=== PATIENT | male | born 1940 | race Two or more races ===

== ENCOUNTER 2022-01-04 21:30 | Inpatient (IN) | payer OTHER ==
[~2022-01-04] VITALS: Ht 165.1 cm; Wt 65.0 kg
[2022-01-04] MEDS ORDERED: LABETALOL HCL 5 MG/ML 4ML SYRINGE IV ONE ×2 (21:45→22:45)
[2022-01-04] MEDS ORDERED: MORPHINE SULFATE 4 MG/ML SYR/VIAL IV ONE (21:45)
[2022-01-04] MEDS ORDERED: KETAMINE 50mg/ML 10ml Vial (500mg/10ml) IV ONE (22:00)
[2022-01-04 22:18] LABS: Basophils # (auto) 0 10 ^3/uL (0-0.2); Basophils % (auto) 0.3 % (0.0-2.0); Eosinophils # (auto) 0.1 10 ^3/uL (0-0.8); Eosinophils % (auto) 1.3 % (0.0-7.0); Hematocrit 42.1 % (41.0-53.0); Hemoglobin 14.1 g/dL (13.5-17.5); Lymphocytes # (auto) 3.3 10 ^3/uL (0.4-5.4); Lymphocytes % (auto) 32.4 % (10.0-50.0); Mean Corpuscular Hgb Conc. 33.5 g/dL (32.0-36.0); Mean Corpuscular Volume 95.5 fL (80.0-100.0); Monocytes # (auto) 0.7 10 ^3/uL (0-1.3); Monocytes % (auto) 6.8 % (0.0-12.0); Neutrophils # (auto) 6.1 10 ^3/uL (1.6-8.6); Neutrophils % (auto) 59.2 % (37.0-80.0); Nucleated Red Blood Cells % 0.1 %; Red Blood Cells 4.41 10^6/uL (4.5-5.90); Red Cell Distribution Width 13.6 % (11.8-14.3); White Blood Cell 10.3 10^3/uL (4.4-10.8)
[2022-01-04 22:35] LABS: Albumin 3.7 g/dL (3.4-5.0); BUN/Creatinine Ratio 14.6; Calcium 8.1 mg/dL (8.5-10.1)
[2022-01-04 22:38] LABS: Bilirubin, Total 0.2 mg/dL (0.2-1.0); Total Protein 7.1 g/dL (6.4-8.2)
[2022-01-05] MEDS ORDERED: LABETALOL HCL 5 MG/ML 4ML SYRINGE IV ONE
[2022-01-05 00:35] LABS: Urine Bacteria NONE SEEN /hpf (None Seen); Urine Blood Negative /uL (Negative); Urine Hyaline Cast FEW /lpf (0 - 2); Urine Specific Gravity 1.013 (1.001-1.035); Urine WBC 1 /hpf (0 - 3)
[2022-01-05 00:39] LABS: Amphetamine Screen, Urine NEGATIVE (NEGATIVE); Barbiturate Scree,Urine NEGATIVE (NEGATIVE); Benzodiazephine Screen, Urine NEGATIVE (NEGATIVE); Cannabinoid Screen, Urine NEGATIVE (NEGATIVE); Cocaine Screen, Urine NEGATIVE (NEGATIVE); Opiate Scree,Urine NEGATIVE (NEGATIVE); Phencyclidine Screen, Urine NEGATIVE (NEGATIVE)
[2022-01-05] MEDS ORDERED: MORPHINE SULFATE 4 MG/ML SYR/VIAL IV ONE ×2 (00:45→02:30)
[2022-01-05] MEDS ORDERED: hydrALAZINE HCL 20 MG/ML VL IV PRN (03:00)
[2022-01-05] MEDS ORDERED: DOCUSATE SOD 100 MG CAP PO PRN (03:00)
[2022-01-05] MEDS ORDERED: ONDANSETRON HCL 4 MG/2 ML VIAL IV PRN (03:00)
[2022-01-05] MEDS ORDERED: DEXTROSE (50%) 50ML SYRG IV PRN (03:00)
[2022-01-05] MEDS ORDERED: ACETAMINOPHEN 325 MG TAB PO PRN (03:00)
[2022-01-05] MEDS ORDERED: KETOROLAC TROMETH 30 MG/ML 1ML VIAL IV ONE (03:30)
[2022-01-05] MEDS ORDERED: MORPHINE SULFATE INJ 2 MG/ml SYRG IV PRN (03:30)
[2022-01-05] MEDS ORDERED: NITROGLYCERIN 0.4 MG SL TAB SL PRN (03:30)
[2022-01-05] MEDS ORDERED: amLODIPine BESYLATE 5 MG TAB PO ONE (03:45)
[2022-01-05] MEDS ORDERED: METOPROLOL TARTRATE 50 MG TAB PO ONE (03:45)
[2022-01-05] MEDS: SODIUM CHLORIDE 0.9% 1,000 ML IV SCH ×2 (03:49→19:40)
[2022-01-05] MEDS ORDERED: ALBUTEROL SULF 2.5 MG/0.5ML(0.5%) NEB SOLN NEB ONE (05:15)
[2022-01-05] MEDS ORDERED: IPRATROPIUM BROM 0.5 MG/2.5ML INH SOL NEB ONE (05:15)
[2022-01-05 06:19] LABS: Basophils # (auto) 0 10 ^3/uL (0-0.2); Basophils % (auto) 0.2 % (0.0-2.0); Eosinophils # (auto) 0 10 ^3/uL (0-0.8); Eosinophils % (auto) 0.1 % (0.0-7.0); Hematocrit 37.8 % (41.0-53.0); Hemoglobin 13.1 g/dL (13.5-17.5); Lymphocytes # (auto) 0.8 10 ^3/uL (0.4-5.4); Lymphocytes % (auto) 8.4 % (10.0-50.0); Mean Corpuscular Hemoglobin 31.3 pg (28.0-32.0); Mean Corpuscular Hgb Conc. 34.6 g/dL (32.0-36.0); Mean Corpuscular Volume 90.5 fL (80.0-100.0); Monocytes # (auto) 0.8 10 ^3/uL (0-1.3); Monocytes % (auto) 8.2 % (0.0-12.0); Neutrophils # (auto) 7.9 10 ^3/uL (1.6-8.6); Neutrophils % (auto) 83.1 % (37.0-80.0); Red Blood Cells 4.17 10^6/uL (4.5-5.90); Red Cell Distribution Width 13.3 % (11.8-14.3); White Blood Cell 9.5 10^3/uL (4.4-10.8)
[2022-01-05 06:34] LABS: Albumin 3.6 g/dL (3.4-5.0); BUN/Creatinine Ratio 16.1; Calcium 8.2 mg/dL (8.5-10.1); Potassium 4.2 mmol/L (3.5-5.1)
[2022-01-05 06:37] LABS: Bilirubin, Total 0.7 mg/dL (0.2-1.0); Total Protein 7.3 g/dL (6.4-8.2)
[2022-01-05] MEDS: ACCU-CHEK COMFORT CURVE STRIP VI SCH ×4 (07:23→22:25)
[2022-01-05] MEDS: InsuLIN REG 1unit/0.01ml Soln (100units/ml) SC SCH ×4 (07:24→22:00)
[2022-01-05] MEDS: DOCUSATE SOD 100 MG CAP PO SCH ×2 (10:13→22:32)
[2022-01-05] MEDS: amLODIPine BESYLATE 5 MG TAB PO SCH (10:14)
[2022-01-05] MEDS: METOPROLOL TARTRATE 50 MG TAB PO SCH ×2 (10:14→22:33)
[2022-01-05] MEDS: HEPARIN SODIUM (PORCINE) 5000 UNITS/ML 1ML VIAL SC SCH ×2 (10:15→22:37)
[2022-01-05] MEDS: IPRATROPIUM BROM 0.5 MG/2.5ML INH SOL NEB PRN (14:49)
[2022-01-05] MEDS: ALBUTEROL SULF 2.5 MG/0.5ML(0.5%) NEB SOLN NEB PRN (14:49)
[2022-01-05 20:13] VITALS: BP 133/73
[2022-01-05 20:22] VITALS: BP 133/73
[2022-01-05] MEDS ORDERED: HYDR25TA5 PO (20:28)
[2022-01-05] MEDS ORDERED: LOSA-39 PO (20:28)
[2022-01-05] MEDS ORDERED: TIOT1AER INH (20:28)
[2022-01-05] MEDS ORDERED: FLUT1AER3 PO (20:30)
[2022-01-05] MEDS ORDERED: AMLO-496 PO (20:32)
[2022-01-05] MEDS ORDERED: ATOR20TA50 (20:32)
[2022-01-05 22:06] VITALS: BP 133/73
[2022-01-05 22:57] VITALS: BP 133/73
[2022-01-06 05:55] VITALS: BP 135/73
[2022-01-06 06:12] LABS: Basophils # (auto) 0 10 ^3/uL (0-0.2); Basophils % (auto) 0.3 % (0.0-2.0); Eosinophils # (auto) 0.1 10 ^3/uL (0-0.8); Hematocrit 35.3 % (41.0-53.0); Hemoglobin 12.3 g/dL (13.5-17.5); Lymphocytes # (auto) 1.1 10 ^3/uL (0.4-5.4); Lymphocytes % (auto) 14.3 % (10.0-50.0); Mean Corpuscular Hemoglobin 31.7 pg (28.0-32.0); Mean Corpuscular Hgb Conc. 34.8 g/dL (32.0-36.0); Monocytes # (auto) 0.6 10 ^3/uL (0-1.3); Monocytes % (auto) 7.7 % (0.0-12.0); Neutrophils # (auto) 6.2 10 ^3/uL (1.6-8.6); Neutrophils % (auto) 76.7 % (37.0-80.0); Nucleated Red Blood Cells % 0.1 %; Red Blood Cells 3.88 10^6/uL (4.5-5.90); Red Cell Distribution Width 13.6 % (11.8-14.3)
[2022-01-06] MEDS: ACCU-CHEK COMFORT CURVE STRIP VI SCH ×4 (06:37→21:14)
[2022-01-06] MEDS: InsuLIN REG 1unit/0.01ml Soln (100units/ml) SC SCH ×4 (06:37→21:14)
[2022-01-06 06:51] LABS: Albumin 2.9 g/dL (3.4-5.0); Calcium 7.6 mg/dL (8.5-10.1); Potassium 3.7 mmol/L (3.5-5.1)
[2022-01-06 06:52] LABS: Bilirubin, Total 0.8 mg/dL (0.2-1.0); Total Protein 6.6 g/dL (6.4-8.2)
[2022-01-06 09:00] VITALS: BP 128/69
[2022-01-06] MEDS: DOCUSATE SOD 100 MG CAP PO SCH ×2 (09:22→21:14)
[2022-01-06] MEDS: amLODIPine BESYLATE 5 MG TAB PO SCH (09:23)
[2022-01-06] MEDS: METOPROLOL TARTRATE 50 MG TAB PO SCH ×2 (09:23→21:14)
[2022-01-06] MEDS: HEPARIN SODIUM (PORCINE) 5000 UNITS/ML 1ML VIAL SC SCH ×2 (09:27→21:14)
[2022-01-06] MEDS: SODIUM CHLORIDE 0.9% 1,000 ML IV SCH (12:20)
[2022-01-06 13:00] VITALS: BP 132/76
[2022-01-06] MEDS: HYDROcodone-ACET 5/325MG TAB PO PRN (13:08)
[2022-01-06] MEDS: IPRATROPIUM BROM 0.5 MG/2.5ML INH SOL NEB PRN ×2 (15:03→19:40)
[2022-01-06] MEDS: ALBUTEROL SULF 2.5 MG/0.5ML(0.5%) NEB SOLN NEB PRN ×2 (15:03→19:40)
[2022-01-06 17:00] VITALS: BP 148/79
[2022-01-06 20:00] VITALS: BP 127/69
[2022-01-06] MEDS ORDERED: HALOPERIDOL LACTATE 5 MG/ML INJ VIAL IM PRN (22:45)
[2022-01-06 23:25] LABS: Free T4 (Free Thyroxine) 0.83 ng/dL (0.89-1.76)
[2022-01-06 23:26] LABS: Folate (Folic Acid) > 24.00 ng/mL (5.38-24)
[2022-01-07 05:00] VITALS: BP 138/74
[2022-01-07] MEDS: SODIUM CHLORIDE 0.9% 1,000 ML IV SCH ×2 (05:04→21:40)
[2022-01-07] MEDS: ACCU-CHEK COMFORT CURVE STRIP VI SCH ×4 (05:07→21:47)
[2022-01-07] MEDS: InsuLIN REG 1unit/0.01ml Soln (100units/ml) SC SCH ×4 (05:07→21:58)
[2022-01-07 05:42] LABS: Basophils # (auto) 0 10 ^3/uL (0-0.2); Basophils % (auto) 0.3 % (0.0-2.0); Eosinophils # (auto) 0.1 10 ^3/uL (0-0.8); Eosinophils % (auto) 1.9 % (0.0-7.0); Hematocrit 34.5 % (41.0-53.0); Hemoglobin 11.9 g/dL (13.5-17.5); Lymphocytes # (auto) 1.5 10 ^3/uL (0.4-5.4); Lymphocytes % (auto) 23.4 % (10.0-50.0); Mean Corpuscular Hemoglobin 31.4 pg (28.0-32.0); Mean Corpuscular Hgb Conc. 34.5 g/dL (32.0-36.0); Monocytes # (auto) 0.6 10 ^3/uL (0-1.3); Monocytes % (auto) 9.1 % (0.0-12.0); Neutrophils # (auto) 4.1 10 ^3/uL (1.6-8.6); Neutrophils % (auto) 65.3 % (37.0-80.0); Red Blood Cells 3.79 10^6/uL (4.5-5.90); Red Cell Distribution Width 13.7 % (11.8-14.3); White Blood Cell 6.3 10^3/uL (4.4-10.8)
[2022-01-07 06:26] LABS: Potassium 3.9 mmol/L (3.5-5.1)
[2022-01-07 06:27] LABS: BUN/Creatinine Ratio 22.2; Calcium 7.7 mg/dL (8.5-10.1)
[2022-01-07] MEDS: IPRATROPIUM BROM 0.5 MG/2.5ML INH SOL NEB PRN (07:10)
[2022-01-07] MEDS: ALBUTEROL SULF 2.5 MG/0.5ML(0.5%) NEB SOLN NEB PRN (07:10)
[2022-01-07] MEDS: METOPROLOL TARTRATE 50 MG TAB PO SCH ×2 (08:45→21:58)
[2022-01-07] MEDS: amLODIPine BESYLATE 5 MG TAB PO SCH (08:46)
[2022-01-07] MEDS: DOCUSATE SOD 100 MG CAP PO SCH ×2 (08:46→21:49)
[2022-01-07] MEDS: HEPARIN SODIUM (PORCINE) 5000 UNITS/ML 1ML VIAL SC SCH ×2 (08:48→22:03)
[2022-01-07 09:00] VITALS: BP 118/63
[2022-01-07] MEDS: HYDROcodone-ACET 5/325MG TAB PO PRN (09:14)
[2022-01-07 13:00] VITALS: BP 109/66
[2022-01-07 17:00] VITALS: BP 130/68
[2022-01-07 22:00] VITALS: BP 159/84
[2022-01-07] MEDS ORDERED: CYANOCOBALAMIN (B-12) 1000 MCG/1 ML VIAL IM ONE (22:30)
[2022-01-08 05:00] VITALS: BP 130/80
[2022-01-08 06:01] LABS: Basophils # (auto) 0 10 ^3/uL (0-0.2); Basophils % (auto) 0.4 % (0.0-2.0); Eosinophils # (auto) 0.1 10 ^3/uL (0-0.8); Eosinophils % (auto) 2.1 % (0.0-7.0); Hematocrit 36.8 % (41.0-53.0); Hemoglobin 12.7 g/dL (13.5-17.5); Lymphocytes # (auto) 1.9 10 ^3/uL (0.4-5.4); Lymphocytes % (auto) 28.6 % (10.0-50.0); Mean Corpuscular Hemoglobin 31.2 pg (28.0-32.0); Mean Corpuscular Hgb Conc. 34.4 g/dL (32.0-36.0); Mean Corpuscular Volume 90.6 fL (80.0-100.0); Monocytes # (auto) 0.7 10 ^3/uL (0-1.3); Monocytes % (auto) 9.9 % (0.0-12.0); Neutrophils # (auto) 3.9 10 ^3/uL (1.6-8.6); Nucleated Red Blood Cells % 0.1 %; Red Blood Cells 4.07 10^6/uL (4.5-5.90); Red Cell Distribution Width 13.2 % (11.8-14.3); White Blood Cell 6.6 10^3/uL (4.4-10.8)
[2022-01-08] MEDS: ACCU-CHEK COMFORT CURVE STRIP VI SCH ×3 (06:07→17:00)
[2022-01-08] MEDS: InsuLIN REG 1unit/0.01ml Soln (100units/ml) SC SCH ×3 (06:07→17:00)
[2022-01-08 07:36] LABS: BUN/Creatinine Ratio 20.7; Calcium 8.1 mg/dL (8.5-10.1); Potassium 3.9 mmol/L (3.5-5.1)
[2022-01-08] MEDS: amLODIPine BESYLATE 5 MG TAB PO SCH (08:50)
[2022-01-08] MEDS: METOPROLOL TARTRATE 50 MG TAB PO SCH (08:50)
[2022-01-08] MEDS: DOCUSATE SOD 100 MG CAP PO SCH (08:51)
[2022-01-08] MEDS: HEPARIN SODIUM (PORCINE) 5000 UNITS/ML 1ML VIAL SC SCH (08:58)
[2022-01-08 09:40] VITALS: BP 105/66
[2022-01-08] MEDS ORDERED: CYANOCOBALAMIN 500 MCG TAB PO SCH (10:00)
[2022-01-08 10:53] VITALS: BP 105/66
[2022-01-08 12:45] VITALS: BP 122/71
[2022-01-08 16:49] VITALS: BP 141/78
== END 2022-01-08 18:30 | disposition home or self-care (01) | DRG 296 ==
LOC: ER 21:30 → EDBD 21:30 → TELE 01-05 03:27 → TELE-WESTW 01-05 18:43
PROVIDERS: ADMIT Nurse Practitioner Family; ATTEND Internal Medicine Pulmonary Disease
DX: I46.9 Cardiac arrest, cause unspecified (principal); J96.01 Acute respiratory failure with hypoxia; I67.4 Hypertensive encephalopathy; I16.0 Hypertensive urgency; K59.00 Constipation, unspecified; F03.90 Unspecified dementia, unspecified severity, without behavioral disturbance, psychotic disturbance, mood disturbance, and anxiety; F29 Unspecified psychosis not due to a substance or known physiological condition; I10 Essential (primary) hypertension; J45.909 Unspecified asthma, uncomplicated; R56.9 Unspecified convulsions; Z20.822 Contact with and (suspected) exposure to COVID-19; R73.9 Hyperglycemia, unspecified
CPT/HCPCS: 36415; 36600; 70450; 70551; 71045; 74176; 78582; 80048; 80053; 80307; 81001; 82607; 82746; 82805; 82962; 83036; 83090; 83880; 84439; 84443; 84484; 85025; 87426; 93005; 93306; 94640; 95819; 96365; 96375; 97163; 99291; G0378; J1815; J1885; J2405; J3490